=== PATIENT | male | born 1955 | race Caucasian/White ===

== ENCOUNTER → 2016-11-22 | Outpatient (CLI) | payer BC ==
[~2016-11-22] MED LIST: ATOR10TA82 PO; CARB1CAP19 PO; PRAM1.5T5 PO; QUET1TAB34 PO; RASA1TAB PO; SRQ25 PO
[2016-11-22 12:09] LABS: BASO % 0.4 %; BASO ABS # 0.02 K/uL (0-0.2); COMPLETE YES; HEMATOCRIT 43.1 % (42-52); IG% 0.2 %; LYMPH ABS # 1.11 K/uL (1.2-3.4); MEAN CELL VOLUME 94.9 fL (80-100); MEAN CORPUSCULAR HEMOGLOBIN 31.7 pg (25-34); MEAN CORPUSCULAR HGB CONC 33.4 g/dl (32-36); MEAN PLATELET VOLUME 11.1 fL (7.4-10.4); MONO % 13.5 %; NEUT % 61.9 %; PLATELET COUNT 172 K/uL (130-400); RED BLOOD COUNT 4.54 M/uL (4.7-6.1); WHITE BLOOD COUNT 5.05 K/uL (4.8-10.8)
[2016-11-22 12:23] LABS: ALT/SGPT 14 U/L (12-78); BLOOD UREA NITROGEN 12 mg/dl (7-18); BUN/CREATININE RATIO 12.3 (10-20); CARBON DIOXIDE 26 mmol/L (21-32); CHLORIDE 108 mmol/L (98-107); CHOLESTEROL 149 mg/dl (0-200); GLUCOSE 107 mg/dl (70-99); POTASSIUM 4.2 mmol/L (3.5-5.1); SODIUM 142 mmol/L (136-145); TRIGLYCERIDES 166 mg/dl (0-150); VERY LOW DENSITY LIPOPROT CALC 33 mg/dl
[2016-11-22 12:27] LABS: ALKALINE PHOSPHATASE 72 U/L (45-117); AST/SGOT 16 U/L (15-37); CHOLESTEROL/HDL RATIO 3.1; HDL CHOLESTEROL 48 mg/dl; LDL CHOLESTEROL CALCULATED 68 mg/dl; PROSTATE SPECIFIC ANTIGEN 0.401 ng/ml (0.000-4.000)
[2016-11-22 12:32] LABS: CALCIUM 9.1 mg/dl (8.5-10.1)
== END | disposition home or self-care (01) ==
LOC: C.LABBFT 09:48
PROVIDERS: ATTEND Internal Medicine
DX: Z00.00 Encounter for general adult medical examination without abnormal findings (principal); R10.9 Unspecified abdominal pain; E78.00 Pure hypercholesterolemia, unspecified; I87.2 Venous insufficiency (chronic) (peripheral)

== ENCOUNTER 2017-09-08 06:24 | Emergency (ER) | payer BC ==
[~2017-09-08] VITALS: Ht 172.7 cm; Wt 77.1 kg
[2017-09-08 06:27] VITALS: TEMP 36.6; Ht 172.7 cm; Wt 77.1 kg
[2017-09-08] MEDS ORDERED: KETOROLAC TROMETHAMINE 30 MG/ML VIAL IV STA (06:45)
[2017-09-08] MEDS ORDERED: ONDANSETRON INJ 2 MG/ML 2 ML VIAL IV STA ×2 (06:45→09:06)
[2017-09-08] MEDS ORDERED: SODIUM CHLORIDE 0.9% 1000ML 1,000 ML IV STA (06:45)
--- NOTE | 2017-09-08 07:03 | EMERGENCY ROOM VISIT NOTE ---
History Report prepared by Desi: Mckayla Lee Under the Supervision of: Dr. Va Cervantes M.D. First contact with patient: 06:38 Chief Complaint: NAUSEA Stated Complaint: UNCONTROLABLE NAUSEA,VOMITING History of Present Illness The patient is a 62 year old male who presents to the Emergency Room with complaints of constant nausea and vomiting beginning about 6 hours ago. The patient reports he started to feel "funny" last night around 7pm. He denies any blood in his vomit, abdominal pain, diarrhea, chest pain, or shortness of breath. The patient has a history of Parkinson's, kidney stones, diverticulitis , and a nodule on his lung. The patient states he is on Prilosec. He recently had a scope of his stomach which he reports was "normal." He does admit to a history of GERD. He denies drinking any alcohol last night. The patient does not smoke. Source of History: patient Onset: 6 hours ago Position: other (generalized) Quality: other (nausea and vomitting) Timing: constant Associated Symptoms: + nausea, + vomiting, No chest pain, No SOB, No abdominal pain, No diarrhea Review of Systems See HPI for pertinent positives & negatives. A total of 10 systems reviewed and were otherwise negative. Past Medical & Surgical Medical Problems: (1) Parkinson's disease Family History Cancer Social History Smoking Status: Never Smoker Alcohol Use: none Drug Use: none Marital Status: Housing Status: lives with family Occupation Status: employed Current/Historical Medications Scheduled Atorvastatin (Lipitor), 10 MG PO HS Carbidopa-Levodopa (Rytary 23.75-95 mg), 4 TABS PO TID Pramipexole Dihydrochloride (Pramipexole Dihydrochlori), 1.5 MG PO TID Quetiapine Fumarate (Quetiapine Fumarate), 25 MG PO QAM Rasagiline Mesylate (Azilect), 1 MG PO DAILY Scheduled PRN Promethazine (Phenergan Suppository), 25 MG NE Q6H PRN for Nausea Allergies Coded Allergies: No Known Allergies (Unverified , 06/28/13) Physical Exam Vital Signs Date Time Temp Pulse Resp B/P (MAP) Pulse Ox O2 Delivery O2 Flow Rate FiO2 09/08/17 16:09 67 18 101/56 94 09/08/17 14:30 69 20 114/58 93 Room Air 09/08/17 13:30 96/55 2 13:14 112/56 2 13:06 82 94 09/08/17 13:01 112/56 09/08/17 12:36 84 95 09/08/17 12:31 107/59 09/08/17 12:06 88 94 09/08/17 12:01 122/76 09/08/17 11:36 95 96 09/08/17 11:31 98/51 09/08/17 11:06 76 96 09/08/17 11:01 120/61 09/08/17 10:36 78 96 09/08/17 10:31 102/55 09/08/17 10:06 91 94 09/08/17 10:01 89/58 09/08/17 09:36 90 95 09/08/17 09:31 117/77 09/08/17 09:24 94 94 09/08/17 09:17 106/62 09/08/17 09:01 106/62 09/08/17 09:00 110/60 09/08/17 08:24 96 92 09/08/17 08:01 109/74 09/08/17 07:54 98 94 09/08/17 07:43 125/79 09/08/17 07:43 107 20 125/79 94 Room Air 09/08/17 07:01 114/78 09/08/17 06:54 103 17 98 09/08/17 06:40 127/82 09/08/17 06:27 36.6 110 18 128/72 97 Room Air Physical Exam Vital signs reviewed. General: Somewhat ill-appearing male, in no significant distress. HEENT: No scleral icterus, PERRLA, neck supple. Atraumatic. Cardiovascular: Regular rate and rhythm, no extra sounds. Pulmonary: Clear to auscultation bilaterally, normal work of breathing. Abdomen: Soft, nontender, nondistended, positive bowel sounds. Musculoskeletal: Atraumatic, no peripheral edema. Neurologic: Patient awake alert and oriented x 3, full strength in all 4 extremities. Cranial nerves 2 through 12 grossly intact. Skin: Warm, dry, no rash Medical Decision & Procedures ER Provider Diagnostic Interpretation: Radiology results as stated below per my review and radiologist interpretation: ABDOMEN 2VIEW W/PA CHEST RTN FINDINGS: The soft tissues, psoas shadows, renal outlines and intestinal gas pattern appear normal. There is no evidence for bowel obstruction. There is no evidence for free intraperitoneal air. 3 mm nonobstructing calcification upper pole right kidney. 3 mm calcification overlying the course of the distal right ureter inferior to the right sacroiliac joint level. Bowel pattern is nonobstructive. A frontal view of the chest was performed and is unremarkable. IMPRESSION: 1. Negative chest. 2. Nonobstructive bowel pattern. 3. Vascular versus ureteral calcification right soft tissue pelvis. 4. CT evaluation of the abdomen and pelvis to exclude a ureteral calculus is recommended. The above report was generated using voice recognition software. It may contain grammatical, syntax or spelling errors. Electronically signed by: Marc Ernst M.D. Laboratory Results 09/08/17 06:58 Red Blood Count 5.20, Mean Corpuscular Volume 94.2, Mean Corpuscular Hemoglobin 31.5, Mean Corpuscular Hemoglobin Concent 33.5, Mean Platelet Volume 10.8, Neutrophils (%) (Auto) 93.5, Lymphocytes (%) (Auto) 3.1, Monocytes (%) (Auto) 2.6, Eosinophils (%) (Auto) 0.5, Basophils (%) (Auto) 0.0, Neutrophils # (Auto) 11.21, Lymphocytes # (Auto) 0.37, Monocytes # (Auto) 0.31, Eosinophils # (Auto) 0.06, Basophils # (Auto) 0.00 09/08/17 06:58 Test 09/08/17 06:58 09/08/17 09:00 White Blood Count 11.99 K/uL (4.8-10.8) Red Blood Count 5.20 M/uL (4.7-6.1) Hemoglobin 16.4 g/dL (14.0-18.0) Hematocrit 49.0 % (42-52) Mean Corpuscular Volume 94.2 fL (80-100) Mean Corpuscular Hemoglobin 31.5 pg (25-34) Mean Corpuscular Hemoglobin Concent 33.5 g/dl (32-36) Platelet Count 157 K/uL (130-400) Mean Platelet Volume 10.8 fL (7.4-10.4) Neutrophils (%) (Auto) 93.5 % Lymphocytes (%) (Auto) 3.1 % Monocytes (%) (Auto) 2.6 % Eosinophils (%) (Auto) 0.5 % Basophils (%) (Auto) 0.0 % Neutrophils # (Auto) 11.21 K/uL (1.4-6.5) Lymphocytes # (Auto) 0.37 K/uL (1.2-3.4) Monocytes # (Auto) 0.31 K/uL (0.11-0.59) Eosinophils # (Auto) 0.06 K/uL (0-0.5) Basophils # (Auto) 0.00 K/uL (0-0.2) RDW Standard Deviation 48.2 fL (36.4-46.3) RDW Coefficient of Variation 14.0 % (11.5-14.5) Immature Granulocyte % (Auto) 0.3 % Immature Granulocyte # (Auto) 0.04 K/uL (0.00-0.02) Anion Gap 9.0 mmol/L (3-11) Est Creatinine Clear Calc Drug Dose 66.4 ml/min Estimated GFR () 80.9 Estimated GFR (Non- 69.8 BUN/Creatinine Ratio 19.0 (10-20) Calcium Level 9.5 mg/dl (8.5-10.1) Magnesium Level 1.9 mg/dl (1.8-2.4) Total Bilirubin 1.2 mg/dl (0.2-1) Direct Bilirubin 0.2 mg/dl (0-0.2) Aspartate Amino Transf (AST/SGOT) 17 U/L (15-37) Alanine Aminotransferase (ALT/SGPT) 20 U/L (12-78) Alkaline Phosphatase 91 U/L (45-117) Total Protein 8.2 gm/dl (6.4-8.2) Albumin 3.9 gm/dl (3.4-5.0) Lipase 156 U/L (73-393) Urine Color DK YELLOW Urine Appearance CLEAR (CLEAR) Urine pH 6.0 (4.5-7.5) Urine Specific [place] 1.034 (1.000-1.030) Urine Protein TRACE (NEG) Urine Glucose (UA) NEG (NEG) Urine Ketones TRACE (NEG) Urine Occult Blood NEG (NEG) Urine Nitrite NEG (NEG) Urine Bilirubin NEG (NEG) Urine Urobilinogen NEG (NEG) Urine Leukocyte Esterase TRACE (NEG) Urine WBC (Auto) 1-5 /hpf (0-5) Urine RBC (Auto) 0-4 /hpf (0-4) Urine Hyaline Casts (Auto) 5-10 /lpf (0-5) Urine Epithelial Cells (Auto) 10-20 /lpf (0-5) Urine Bacteria (Auto) NEG (NEG) Laboratory results per my review. Medications Administered Medications (Trade) Dose Ordered Sig/Eulalia Route Start Time Stop Time Status Last Admin Dose Admin Ondansetron HCl (Zofran Inj) 4 mg NOW STAT IV 09/08/17 06:45 09/08/17 06:48 DC 09/08/17 07:02 4 MG Ketorolac Tromethamine (Toradol Inj) 30 mg NOW STAT IV 09/08/17 06:45 09/08/17 06:48 DC 09/08/17 07:03 30 MG Sodium Chloride 1,000 ml @ 250 mls/hr Q4H STAT IV 09/08/17 06:45 09/08/17 10:44 DC 09/08/17 07:00 250 MLS/HR Ondansetron HCl (Zofran Inj) 4 mg NOW STAT IV 09/08/17 09:06 09/08/17 09:07 DC 09/08/17 09:14 4 MG Morphine Sulfate (MoRPHine SULFATE INJ) 4 mg NOW STAT IV 09/08/17 09:06 09/08/17 09:07 DC 09/08/17 09:15 4 MG Promethazine HCl 12.5 mg/Sodium Chloride 50.5 ml @ 204 mls/hr NOW STAT IV 09/08/17 12:12 09/08/17 12:26 DC 09/08/17 12:43 204 MLS/HR ECG Indication: nausea Rate (beats per minute): 98 Rhythm: normal sinus Findings: no acute ischemic change, no ectopy, other (rightward axis) Change: EKG interpreted by me. ED Course 0644: Past medical records reviewed. The patient was evaluated in room A2. A complete history and physical examination was performed. 0645: Ordered Sodium Chloride 1000 ml @ 250 mls/hr IV, Toradol Inj 30 mg IV, Zofran Inj 4 mg IV. 0905: The patient is aware of his kidney stones and states he does not want a CT scan. 0906: Ordered Morphine Sulfate 4 mg IV, Zofran Inj 4 mg IV. 1210: On reassessment, the patient is still nauseous. 1212: Ordered Promethazine HCl 12.5 mg/Sodium Chloride 50.5 ml @ 204 mls/hr IV. Medical Decision Differential diagnosis: Etiologies such as gastroenteritis, food borne illness, infections, appendicitis , diverticulitis, inflammatory bowel disease, obstruction, GI bleed, biliary pathology, as well as others were entertained. This patient was evaluated and appeared to be in some discomfort. IV access was obtained and laboratory work was drawn. The patient was medicated with IV Zofran 2. He was hydrated with normal saline solution. Laboratory work reveals a mild leukocytosis but is otherwise fairly unrevealing. UA is negative for infection. Abdominal x-ray series reveals no evidence of obstruction or free air. There is concern over a ureteral calcification. This was discussed with the patient who has declined CAT scan of follow-up. He has not experienced any significant pain at this time. I do suspect the patient's symptoms are viral. He has expressed concern over "liver masses" and his intractable nausea. Patient was then given IV Phenergan and an ultrasound of the right upper quadrant was ordered. The ultrasound reveals no evidence of acute process however there is a markedly abnormal liver parenchyma. The patient was informed of the findings. I suspect his symptoms today are viral in etiology however he was advised to follow-up with his PCP for further evaluation of the liver process. Patient was discharged with Phenergan 25 mg suppositories. He will maintain a clear liquid diet and advance his diet slowly as tolerated. Patient was advised to return to the ER for worsening of symptoms or any medical concerns. Medication Reconcilliation Current Medication List: was personally reviewed by me Impression Primary Impression: Nausea and vomiting Additional Impression: Abnormal liver ultrasound Scribe Attestation The scribe's documentation has been prepared under my direction and personally reviewed by me in its entirety. I confirm that the note above accurately reflects all work, treatment, procedures, and medical decision making performed by me. Departure Information Prescriptions Promethazine (Phenergan Suppository) 25 Mg Supp 25 MG NE Q6H Y for Nausea, #10 SUPP Prov: Va Cervantes M.D. 09/08/17 Referrals Drew Duckworth M.D. (PCP) Patient Instructions My [facility] [address] Problem Qualifiers
[2017-09-08 07:28] LABS: EOS % 0.5 %; EOS ABS # 0.06 K/uL (0-0.5); HEMOGLOBIN 16.4 g/dL (14.0-18.0); IG# 0.04 K/uL (0.00-0.02); LYMPH % 3.1 %; LYMPH ABS # 0.37 K/uL (1.2-3.4); MEAN CELL VOLUME 94.2 fL (80-100); MEAN CORPUSCULAR HEMOGLOBIN 31.5 pg (25-34); MEAN CORPUSCULAR HGB CONC 33.5 g/dl (32-36); MEAN PLATELET VOLUME 10.8 fL (7.4-10.4); MONO % 2.6 %; MONO ABS # 0.31 K/uL (0.11-0.59); NEUT % 93.5 %; NEUT ABS # 11.21 K/uL (1.4-6.5); PLATELET COUNT 157 K/uL (130-400); RED CELL DISTRIBUTION WIDTH SD 48.2 fL (36.4-46.3); WHITE BLOOD COUNT 11.99 K/uL (4.8-10.8)
--- NOTE | 2017-09-08 07:46 | DIAGNOSTIC IMAGING REPORT ---
ABDOMEN 2VIEW W/PA CHEST RTN CLINICAL HISTORY: vomiting nausea COMPARISON STUDY: No previous studies for comparison. FINDINGS: The soft tissues, psoas shadows, renal outlines and intestinal gas pattern appear normal. There is no evidence for bowel obstruction. There is no evidence for free intraperitoneal air. 3 mm nonobstructing calcification upper pole right kidney. 3 mm calcification overlying the course of the distal right ureter inferior to the right sacroiliac joint level. Bowel pattern is nonobstructive.. A frontal view of the chest was performed and is unremarkable. IMPRESSION: 1. Negative chest. 2. Nonobstructive bowel pattern. 3. Vascular versus ureteral calcification right soft tissue pelvis. 4. CT evaluation of the abdomen and pelvis to exclude a ureteral calculus is recommended. The above report was generated using voice recognition software. It may contain grammatical, syntax or spelling errors. Electronically signed by: Marc Ernst M.D. 09/08/2017 7:45 AM Dictated Date/Time: 09/08/2017 7:42 AM
[2017-09-08 07:48] LABS: ALBUMIN 3.9 gm/dl (3.4-5.0); CALCIUM 9.5 mg/dl (8.5-10.1); CREATININE 1.13 mg/dl (0.60-1.40); POTASSIUM 4.3 mmol/L (3.5-5.1)
[2017-09-08 07:51] LABS: TOTAL PROTEIN 8.2 gm/dl (6.4-8.2)
[2017-09-08] MEDS ORDERED: MoRPHine SULFATE 4 MG/ML 1 ML CARP\\VIAL IV STA (09:06)
[2017-09-08] MEDS ORDERED: PROMETHAZINE HCL INJ 12.5 MG in SODIUM CHLORIDE 0.9% 50ML 50 ML IV STA (12:12)
--- NOTE | 2017-09-08 15:49 | DIAGNOSTIC IMAGING REPORT ---
GALLBLADDER-ABD LIMITED CLINICAL HISTORY: 62 years-old Male presenting with nausea, vomiting, liver lesions. TECHNIQUE: Real-time grayscale and limited color Doppler ultrasound imaging of the abdomen limited to the right upper quadrant was performed. COMPARISON: CT from 2015. FINDINGS: Pancreas: Largely obscured due to overlying bowel gas. Liver: Markedly abnormal parenchyma with patchy hyperechogenicity. The liver measures 14.5 cm in maximal sagittal dimension. No sonographic evidence of hepatic mass. Main portal vein patent with normal directional flow. Biliary: No intrahepatic biliary ductal dilatation. Common bile duct measures up to 5 mm in diameter. Gallbladder: No evidence of gallstones, gallbladder wall thickening, gallbladder distention, or pericholecystic fluid or inflammatory change. Right kidney: Hyperechogenic focus measuring 5 mm at the upper pole, possibly calculus. No hydronephrosis. Ascites: None. IMPRESSION: Markedly abnormal liver parenchyma with patchy hyperechogenicity. Differential considerations include heterogeneous fatty infiltration, calcified granulomata, chronic hepatitis, infiltration with malignancy, or hemachromatosis. Further evaluation with dedicated contrast-enhanced liver CT recommended. Electronically signed by: Elvin Cosme M.D. 09/08/2017 3:48 PM Dictated Date/Time: 09/08/2017 3:45 PM
[2017-09-08] MEDS ORDERED: PROM1SUP19 PR (15:56)
[2017-09-08 16:09] VITALS: BP 101/56; PULSE 67; O2SAT 94
== END 2017-09-08 16:15 | disposition home or self-care (01) ==
LOC: C.EDB 06:25 → C.EDA 16:15
DX: R11.2 Nausea with vomiting, unspecified (principal); R93.2 Abnormal findings on diagnostic imaging of liver and biliary tract; G20 Parkinson's disease; Z87.442 Personal history of urinary calculi; R91.1 Solitary pulmonary nodule; Z79.899 Other long term (current) drug therapy; K21.9 Gastro-esophageal reflux disease without esophagitis